=== PATIENT | female | born 1945 ===

== ENCOUNTER 2019-01-31 14:36 | Outpatient (CLI) | payer BC | END 2019-01-31 14:50 | disposition home or self-care (01) | LOC: LAB 14:36 | DX: R42 Dizziness and giddiness (principal); R51 Headache; Z00.00 Encounter for general adult medical examination without abnormal findings; E78.49 Other hyperlipidemia; E55.9 Vitamin D deficiency, unspecified ==

== ENCOUNTER 2019-06-10 09:05 | Outpatient (CLI) | payer BC | END 2019-06-10 09:25 | disposition home or self-care (01) | LOC: RAD 09:05 | DX: R51 Headache (principal); M54.2 Cervicalgia ==